=== PATIENT | female | born 1960 | race Caucasian/White ===

== ENCOUNTER 2020-01-23 22:54 | Emergency (ER) | payer OTHER ==
[~2020-01-23] VITALS: Ht 165.1 cm; Wt 66.2 kg
[2020-01-23] MEDS ORDERED: RIVA20TA PO (23:37)
[2020-01-23] MEDS ORDERED: MORP15TA43 PO (23:37)
[2020-01-23] MEDS ORDERED: NICO-704 TD (23:37)
[2020-01-23] MEDS ORDERED: MOM30 PO (23:37)
[2020-01-23] MEDS ORDERED: PANT-31 PO (23:37)
[2020-01-23] MEDS ORDERED: QUET25TA PO (23:37)
[2020-01-23] MEDS ORDERED: ACET-2865 PO (23:37)
[2020-01-23] MEDS ORDERED: LACT30L PO (23:37)
[2020-01-23] MEDS ORDERED: LIDO1ADH5 TP (23:37)
[2020-01-23] MEDS ORDERED: MELA5TAB3 PO (23:37)
[2020-01-23] MEDS ORDERED: BISA10SU11 PR (23:37)
[2020-01-23] MEDS ORDERED: OXYC10TA59 PO (23:37)
[2020-01-23] MEDS ORDERED: RIVA15T PO (23:37)
[2020-01-24 00:03] LABS: COVID AG,FIA SOURCE NASOPHARYNGEAL
[2020-01-24 00:20] VITALS: BP 108/64
== END 2020-01-24 01:47 | disposition left against medical advice (07) ==
LOC: EMS 22:54
DX: R07.9 Chest pain, unspecified (principal); Z20.828 Contact with and (suspected) exposure to other viral communicable diseases; F17.210 Nicotine dependence, cigarettes, uncomplicated; I10 Essential (primary) hypertension; Z79.899 Other long term (current) drug therapy
CPT/HCPCS: 87426; 93005; 99284; U0003; Z7502

== ENCOUNTER 2021-05-05 19:14 | Inpatient (IN) | payer OTHER ==
[~2021-05-05] VITALS: Ht 165.1 cm; Wt 59.0 kg
[~2021-05-05 19:14] MED LIST: ACET-2247 PO; BISA10SU11 PR; LACT30L PO; LIDO1ADH5 TP; MELA5TAB40 PO; MOM30 PO; MORP15TA43 PO; NICO-803 TD; OXYC10TA59 PO; PANT-31 PO; QUET25TA PO; RIVA15TA PO; RIVA20TA PO
[2021-05-05 19:38] LABS: BASOPHILS % (AUTO) 0.7 % (0.0-2.0); EOSINOPHILS % (AUTO) 2.9 % (1.0-6.0); HEMATOCRIT 39.8 % (36-46); HEMOGLOBIN 13.3 g/dL (12.0-16.0); LYMPHOCYTES # (AUTO) 1.3 K/uL (1.0-4.8); LYMPHOCYTES % (AUTO) 34.4 % (22.0-44.0); MEAN CORPUSCULAR HEMOGLOBIN 29.5 pg (26.0-34.0); MEAN CORPUSCULAR HGB CONC 33.4 G/dL (31.0-37.0); MEAN CORPUSCULAR VOLUME 88 fL (80-100); MONOCYTES # (AUTO) 0.3 K/uL (0.1-1.0); MONOCYTES % (AUTO) 7.6 % (2.0-9.0); NEUTROPHILS % (AUTO) 54.4 % (40.0-70.0); PLATELET COUNT (AUTO) 253 K/uL (150-450); RED BLOOD CELL COUNT(AUTO) 4.51 MIL/uL (4.00-5.20); RED CELL DISTRIBUTION WIDTH 16.9 % (11.5-14.5)
[2021-05-05 19:48] LABS: ANION GAP 13 mmol/L (8-16); CALCIUM, TOTAL 9.2 mg/dL (8.8-10.5); CARBON DIOXIDE 23 mmol/L (22-29); CHLORIDE 97 mmol/L (98-107); CREATININE 0.82 mg/dL (0.60-1.30); GLOMERULAR FILTR. RATE CALC > 60 mL/min (>60); GLUCOSE,RANDOM 89 mg/dL (70-110); SODIUM SERUM 133 mmol/L (136-145); UREA NITROGEN, BLOOD 7 mg/dL (7-18)
[2021-05-05 19:54] LABS: ALANINE AMINOTRANSFERASE 19 U/L (12-78); ALBUMIN 3.8 g/dL (3.4-5.0); ALKALINE PHOSPHATASE 85 U/L (46-116); ASPARTATE AMINOTRANSFERASE 32 U/L (15-37); BILIRUBIN,TOTAL 0.6 mg/dL (0.1-1.0); LIPASE 81 U/L (73-393); TOTAL PROTEIN, SERUM 8.2 g/dL (6.4-8.2)
[2021-05-05 20:29] LABS: APPEARANCE,URINE CLEAR (CLEAR); BILIRUBIN,URINE NEGATIVE (NEGATIVE); GLUCOSE, URINE (UA) NEGATIVE (NEGATIVE); KETONES,URINE NEGATIVE (NEGATIVE); LEUKOCYTE ESTERASE ,URINE NEGATIVE (NEGATIVE); NITRATE,URINE NEGATIVE (NEGATIVE); OCCULT BLOOD,URINE NEGATIVE (NEGATIVE); PROTEIN,URINE NEGATIVE (NEGATIVE); UROBILINOGEN,URINE 0.2 mg/dL (<=1.0)
[2021-05-05 20:39] LABS: AMPHET/METH SCREEN,URINE POSITIVE (NEGATIVE); BACTERIA,URINE None Seen /HPF (None Seen); BARBITURATE SCREEN, URINE NEGATIVE (NEGATIVE); BENZODIAZEPINES SCREEN,URINE NEGATIVE (NEGATIVE); CANNABINOID SCREEN,URINE NEGATIVE (NEGATIVE); COCAINE SCREEN,URINE NEGATIVE (NEGATIVE); METHADONE SCREEN, URINE NEGATIVE (NEGATIVE); OPIATE SCREEN,URINE NEGATIVE (NEGATIVE); RBC,URINE 0-2 /HPF (0-2); WBC,URINE None Seen /HPF (0-5)
[2021-05-05 20:45] LABS: PHENCYCLIDINE SCREEN,URINE NEGATIVE (NEGATIVE)
[2021-05-05] MEDS ORDERED: LORazepam 2 MG/ML VIAL IVP ONE (22:15)
[2021-05-05] MEDS ORDERED: BARIUM SULFATE 0.1% SUSPENSION 450 ML BOTTLE PO ONE (22:15)
[2021-05-05] MEDS ORDERED: MORPHINE SULFATE 4 MG/ML SYRINGE IVP ONE (22:15)
[2021-05-05] MEDS ORDERED: ONDANSETRON HCL 4 MG/2 ML VIAL IVP ONE (22:15)
[2021-05-05] MEDS ORDERED: SODIUM CHLORIDE 0.9% 1,000 ML IV ONE (22:15)
[2021-05-06] MEDS ORDERED: SODIUM CHLORIDE 0.9% 100 ML ONE (01:19)
[2021-05-06] MEDS ORDERED: IOHEXOL 350 MG/ML 100 ML VIAL ONE (01:20)
[2021-05-06] MEDS ORDERED: MORPHINE SULFATE 2 MG/ML SYRINGE IVP ONE (02:15)
[2021-05-06] MEDS ORDERED: ONDANSETRON HCL 4 MG/2 ML VIAL IVP ONE (02:15)
[2021-05-06] MEDS ORDERED: SODIUM CHLORIDE 0.9% 1,000 ML IV ONE (02:15)
[2021-05-06] MEDS ORDERED: ACETAMINOPHEN 325 MG TABLET PO PRN (05:30)
[2021-05-06] MEDS ORDERED: RINGERS SOLUTION,LACTATED 1,000 ML IV SCH (05:30)
[2021-05-06] MEDS ORDERED: ONDANSETRON HCL 4 MG/2 ML VIAL IVP PRN (05:30)
[2021-05-06 06:29] LABS: COVID AG,FIA SOURCE NASOPHARYNGEAL
[2021-05-06] MEDS: HEPARIN SODIUM,PORCINE 5,000 UNITS/ML VIAL SQ SCH ×3 (08:00→23:08)
[2021-05-06] MEDS ORDERED: PANTOPRAZOLE SODIUM 40 MG/VIAL IVP SCH (09:30)
[2021-05-06] MEDS: NICOTINE 21 MG/24 HOUR PATCH TD SCH (10:30)
[2021-05-06] MEDS: MORPHINE SULFATE 2 MG/ML SYRINGE IVP PRN ×5 (11:27→23:09)
[2021-05-06 13:48] VITALS: BP 160/76
[2021-05-06] MEDS: 1: MAGNESIUM SULFATE 2 GM, MVI, ADULT NO.1 WITH VIT K 10 ML, THIAMINE 100 MG, FOLIC ACID IV SCH ×5 (16:15)
[2021-05-06 19:33] VITALS: BP 160/100
[2021-05-06] MEDS: PANTOPRAZOLE SODIUM 40 MG/VIAL IVP SCH (20:45)
[2021-05-06 23:15] VITALS: BP 158/94
[2021-05-06] MEDS ORDERED: NICOTINE 21 MG/24 HOUR PATCH TD ONE (23:15)
[2021-05-07] MEDS: MORPHINE SULFATE 2 MG/ML SYRINGE IVP PRN ×4 (02:14→12:10)
[2021-05-07 03:20] VITALS: BP 192/95
[2021-05-07] MEDS ORDERED: LABETALOL HCL 100 MG TABLET PO SCH (03:45)
[2021-05-07] MEDS: 1: MAGNESIUM SULFATE 2 GM, MVI, ADULT NO.1 WITH VIT K 10 ML, THIAMINE 100 MG, FOLIC ACID IV SCH ×5 (05:43)
[2021-05-07] MEDS: NICOTINE 21 MG/24 HOUR PATCH TD SCH (08:45)
[2021-05-07] MEDS: PANTOPRAZOLE SODIUM 40 MG/VIAL IVP SCH (08:46)
[2021-05-07] MEDS: HEPARIN SODIUM,PORCINE 5,000 UNITS/ML VIAL SQ SCH (08:46)
[2021-05-07 09:06] VITALS: BP 141/93
[2021-05-07] MEDS ORDERED: NICOTINE POLACRILEX 2 MG LOZENGE PO PRN (11:15)
[2021-05-07 12:31] VITALS: BP 141/92
== END 2021-05-07 13:30 | disposition left against medical advice (07) | DRG 254 ==
LOC: EMS 19:20 → 5N 05-06 06:14
PROVIDERS: ADMIT Internal Medicine; ATTEND Internal Medicine
DX: K44.9 Diaphragmatic hernia without obstruction or gangrene (principal); E87.1 Hypo-osmolality and hyponatremia; F17.210 Nicotine dependence, cigarettes, uncomplicated; F32.A Depression, unspecified; I10 Essential (primary) hypertension; K29.70 Gastritis, unspecified, without bleeding; K21.00 Gastro-esophageal reflux disease with esophagitis, without bleeding; F10.20 Alcohol dependence, uncomplicated; Y90.9 Presence of alcohol in blood, level not specified; Z20.822 Contact with and (suspected) exposure to COVID-19; Z53.29 Procedure and treatment not carried out because of patient's decision for other reasons; Z86.718 Personal history of other venous thrombosis and embolism; Z79.01 Long term (current) use of anticoagulants; Z88.8 Allergy status to other drugs, medicaments and biological substances
CPT/HCPCS: 71045; 74177; 80053; 81001; 83690; 84484; 85025; 93005; 99285; C9113; G0480; J1644; J2060; J2270; J2405; J3411; J3475; J3490; J7030; J7050; J7120; Q9967; 36415-L1; 36415-TC

== ENCOUNTER 2023-12-30 08:47 | Emergency (ER) | payer OTHER ==
[~2023-12-30] VITALS: Ht 152.4 cm; Wt 61.4 kg
[~2023-12-30 08:47] MED LIST changes: +LACT10SO10 PO; -LACT30L PO; +MAGN-169 PO; -MOM30 PO
[2023-12-30 09:28] VITALS: TEMP 97.9
[2023-12-30 09:58] LABS: BASOPHILS % (AUTO) 0.9 % (0.0-2.0); HEMATOCRIT 40.9 % (36-46); HEMOGLOBIN 13.9 g/dL (12.0-16.0); LYMPHOCYTES # (AUTO) 1.1 K/uL (1.0-4.8); LYMPHOCYTES % (AUTO) 26.8 % (22.0-44.0); MEAN CORPUSCULAR HEMOGLOBIN 34.8 pg (26.0-34.0); MEAN CORPUSCULAR VOLUME 103 fL (80-100); MONOCYTES # (AUTO) 0.4 K/uL (0.1-1.0); NEUTROPHILS # (AUTO) 2.6 K/uL (1.8-7.7); NEUTROPHILS % (AUTO) 62.3 % (40.0-70.0); PLATELET COUNT (AUTO) 170 K/uL (150-450); RED BLOOD CELL COUNT(AUTO) 3.99 MIL/uL (4.00-5.20); WHITE BLOOD COUNT (AUTO) 4.1 K/uL (4.5-11.0)
[2023-12-30 10:09] LABS: CALCIUM, TOTAL 9.3 mg/dL (8.8-10.5); CREATININE 1.08 mg/dL (0.60-1.30); POTASSIUM 3.3 mmol/L (3.5-5.1)
[2023-12-30 10:15] LABS: ALBUMIN 3.6 g/dL (3.4-5.0); BILIRUBIN,DIRECT 0.3 mg/dL (0.00-0.20); BILIRUBIN,TOTAL 1.1 mg/dL (0.1-1.0); TOTAL PROTEIN, SERUM 7.5 g/dL (6.4-8.2)
[2023-12-30 10:16] LABS: TROPONIN I-HIGH SENSITIVITY 11 ng/L (<51)
[2023-12-30] MEDS: DIPHENOXYLATE/ATROP 2.5-0.025 MG TABLET PO ONE ×2 (11:21→11:26)
[2023-12-30] MEDS: CIPROFLOXACIN HCL 250 MG TABLET PO ONE (11:21)
[2023-12-30] MEDS: SODIUM CHLORIDE 0.9% 1,000 ML IV ONE (11:26)
[2023-12-30 13:32] LABS: APPEARANCE,URINE CLEAR (CLEAR); BILIRUBIN,URINE NEGATIVE (NEGATIVE); COLOR,URINE LIGHT YELLOW (YELLOW); GLUCOSE, URINE (UA) NEGATIVE (NEGATIVE); KETONES,URINE NEGATIVE (NEGATIVE); LEUKOCYTE ESTERASE ,URINE TRACE (NEGATIVE); NITRATE,URINE NEGATIVE (NEGATIVE); OCCULT BLOOD,URINE NEGATIVE (NEGATIVE); PH,URINE 5.5 (5.0-8.0); PROTEIN,URINE NEGATIVE (NEGATIVE); SPECIFIC GRAVITIY, URINE 1.014 (1.003-1.030); UROBILINOGEN,URINE <=1.0 mg/dL (<=1.0)
[2023-12-30 14:05] LABS: BACTERIA,URINE Moderate /HPF (None Seen); RBC,URINE None Seen /HPF (0-2); SQUAMOUS EPITHELIAL CELL,UR Few /LPF (None Seen)
[2023-12-30] MEDS: ChlordiazePOXIDE HCL 10 MG CAPSULE PO ONE (14:20)
[2023-12-30 15:12] VITALS: BP 140/88; PULSE 102; RESP 18; O2SAT 98
[2023-12-30] MEDS: CefTRIAXone 1 GM/DEXTROSE 50 ML IV ONE (16:01)
[2023-12-30] MEDS ORDERED: AMOX-457 PO (16:08)
== END 2023-12-30 16:40 | disposition home or self-care (01) ==
LOC: EMS 08:47
DX: N39.0 Urinary tract infection, site not specified (principal); K52.9 Noninfective gastroenteritis and colitis, unspecified; I10 Essential (primary) hypertension; F32.A Depression, unspecified; F10.20 Alcohol dependence, uncomplicated; F17.210 Nicotine dependence, cigarettes, uncomplicated; Z98.890 Other specified postprocedural states; Y90.9 Presence of alcohol in blood, level not specified
CPT/HCPCS: 99285; 74176; 96365; 96361; 80048; 80076; 81001; 83690; 84484; 85025; 36415; 87086; 87186; 93005; J0696; J7030

== ENCOUNTER 2024-08-25 16:01 | Emergency (ER) | payer OTHER ==
[~2024-08-25] VITALS: Ht 165.1 cm; Wt 59.1 kg
[~2024-08-25 16:01] MED LIST changes: -ACET-2247 PO; +AMOX-457 PO; -BISA10SU11 PR; -LACT10SO10 PO; -LIDO1ADH5 TP; -MAGN-169 PO; -MELA5TAB40 PO; -MORP15TA43 PO; -NICO-803 TD; -OXYC10TA59 PO; -PANT-31 PO; -QUET25TA PO; -RIVA15TA PO; -RIVA20TA PO
[2024-08-25 16:32] LABS: COVID AG,FIA SOURCE NASAL SWAB
[2024-08-25 16:53] LABS: INFLUENZA TYPE A NEGATIVE FOR TYPE A (NEGATIVE); INFLUENZA TYPE B NEGATIVE FOR TYPE B (NEGATIVE); SARS-COV2 (COVID) ANTIGEN,FIA Negative (Negative)
[2024-08-25 17:27] VITALS: BP 142/78; PULSE 109; RESP 18; TEMP 98.1; O2SAT 98
== END 2024-08-25 17:43 | disposition home or self-care (01) ==
LOC: EMS 16:01
DX: J44.9 Chronic obstructive pulmonary disease, unspecified (principal); I10 Essential (primary) hypertension; F32.9 Major depressive disorder, single episode, unspecified; F17.210 Nicotine dependence, cigarettes, uncomplicated; F10.90 Alcohol use, unspecified, uncomplicated; F15.10 Other stimulant abuse, uncomplicated; Z98.890 Other specified postprocedural states; Z20.822 Contact with and (suspected) exposure to COVID-19; Z79.899 Other long term (current) drug therapy; Y90.9 Presence of alcohol in blood, level not specified
CPT/HCPCS: 87804; 99283